=== PATIENT | male | born 1960 | race Caucasian/White ===

== ENCOUNTER 2018-02-02 06:02 | Inpatient (IN) | payer BC, OTHER ==
[2018-02-02] MEDS ORDERED: POLYMYXIN/BACITRACIN 1L IRRIG (06:46)
[2018-02-02] MEDS ORDERED: DESFLURANE 15 MIN (07:00)
[2018-02-02] MEDS ORDERED: LABETALOL HCL 20MG INJ IV (07:30)
[2018-02-02] MEDS ORDERED: DIPHENHYDRAMINE 50 MG INJ IV (07:30)
[2018-02-02] MEDS ORDERED: HYDROmorphONE 1 MG/5 ML IV SYRINGE IV (07:30)
[2018-02-02] MEDS ORDERED: hydrALAzine 20 MG INJ IV (07:30)
[2018-02-02] MEDS ORDERED: MIDAZOLAM 1 MG/ML 2 ML INJ (07:32)
[2018-02-02] MEDS ORDERED: METOCLOPRAMIDE 10 MG INJ (07:33)
[2018-02-02] MEDS ORDERED: ONDANSETRON 4 MG INJ (07:36)
[2018-02-02] MEDS ORDERED: FENTAnyl 50 MCG/ML VIAL (07:36)
[2018-02-02] MEDS ORDERED: HYDROmorphONE 2 MG/ML SYG (07:36)
[2018-02-02] MEDS ORDERED: ROCURONIUM 50 MG INJ ×2 (08:02→11:50)
[2018-02-02] MEDS ORDERED: CEFAZOLIN 1 GM INJ (08:02)
[2018-02-02] MEDS ORDERED: SUCCINYLCHOLINE CHLORIDE 100 MG/5 ML SYG IV (08:02)
[2018-02-02] MEDS: HEMOSTATIC MATRIX SYG ZFS ×2 (08:32→11:26)
[2018-02-02] MEDS: BUPIVACAINE 0.25%/EPI (SDV) 10 ML INJ (11:26)
[2018-02-02] MEDS: POLYMYXIN/BACITRACIN 1L IRRIG (11:26)
[2018-02-02] MEDS: GELATIN SIZE 100 SPONGE (11:26)
[2018-02-02] MEDS: THROMBIN 5000 UNIT VIAL (11:26)
[2018-02-02] MEDS ORDERED: GLYCOPYRROLATE 0.4 MG INJ (11:50)
[2018-02-02] MEDS ORDERED: NEOSTIGMINE 3 MG/3 ML SYRINGE (11:50)
[2018-02-02] MEDS ORDERED: NACL 0.9% 3 ML SYG IV (12:00)
[2018-02-02] MEDS ORDERED: AL HYDROX/MG HYDROX/SIMETH 30 ML CUP PO (12:00)
[2018-02-02] MEDS ORDERED: NALOXONE (0.4 MG/ML) INJ IV (12:00)
[2018-02-02] MEDS ORDERED: HYDROCODONE/APAP (5/325) TAB PO (12:00)
[2018-02-02] MEDS ORDERED: ACETAMINOPHEN 325 MG TAB PO (12:00)
[2018-02-02] MEDS: HYDROmorphONE 1 MG/5 ML IV SYRINGE IV ×4 (12:03→12:52)
[2018-02-02] MEDS: MEPERIDINE 25 MG INJ IV (12:41)
[2018-02-02] MEDS: LISINOPRIL 10 MG TAB PO (13:30)
[2018-02-02] MEDS: ONDANSETRON 4 MG INJ IV (13:34)
[2018-02-02] MEDS: CEFAZOLIN 1 GM/50 ML (PMX) 50 ML IVPB ×2 (13:35→19:57)
[2018-02-02] MEDS: SOD CHLORIDE 0.9% 1,000 ML IV (14:08)
[2018-02-02] MEDS: METOPROLOL (XL) 100 MG TAB PO (14:30)
[2018-02-02] MEDS: HYDROmorphONE 0.5 MG/0.5 ML SYG IV ×2 (15:39→18:31)
[2018-02-02] MEDS: HYDROCODONE/APAP (5/325) TAB PO (21:51)
[2018-02-03] MEDS: CEFAZOLIN 1 GM/50 ML (PMX) 50 ML IVPB ×2 (01:52→08:41)
[2018-02-03] MEDS: HYDROCODONE/APAP (5/325) TAB PO ×2 (01:56→11:31)
[2018-02-03] MEDS: SOD CHLORIDE 0.9% 1,000 ML IV ×2 (02:00→03:41)
[2018-02-03] MEDS: HYDROmorphONE 0.5 MG/0.5 ML SYG IV ×7 (02:44→21:44)
[2018-02-03 05:32] LABS: HEMATOCRIT 36.9 % (42.0-52.0); HEMOGLOBIN 12.7 g/dl (14.0-18.0)
[2018-02-03 06:22] LABS: BLOOD UREA NITROGEN 11 mg/dl (7-20); CALCIUM 8.3 mg/dl (8.4-10.2); CARBON DIOXIDE 25 mmol/L (21-31); CREATININE 0.73 mg/dl (0.61-1.24); Estimated GFR > 60 mL/min (>60); GLUCOSE 99 mg/dl (70-220)
[2018-02-03 07:09] LABS: ANION GAP 7 (5-13); CHLORIDE 102 mmol/L (97-110); POTASSIUM 3.9 mmol/L (3.5-5.1)
[2018-02-03 07:11] LABS: SODIUM 134 mmol/L (135-144)
[2018-02-03] MEDS: DOCUSATE SODIUM 100 MG CAP PO ×2 (08:40→20:52)
[2018-02-03] MEDS: METOPROLOL (XL) 100 MG TAB PO (08:41)
[2018-02-03] MEDS: LISINOPRIL 10 MG TAB PO (08:41)
[2018-02-03] MEDS: ONDANSETRON 4 MG INJ IV (09:46)
[2018-02-03] MEDS: PROCHLORPERAZINE 10 MG TAB PO (12:32)
[2018-02-03] MEDS ORDERED: FAMOTIDINE 20 MG TAB PO (18:30)
[2018-02-03] MEDS: FAMOTIDINE 20 MG TAB PO (18:36)
[2018-02-04] MEDS: HYDROCODONE/APAP (5/325) TAB PO ×5 (01:09→17:03)
[2018-02-04] MEDS: SOD CHLORIDE 0.9% 1,000 ML IV ×2 (02:04→15:02)
[2018-02-04] MEDS: DOCUSATE SODIUM 100 MG CAP PO (08:11)
[2018-02-04] MEDS: METOPROLOL (XL) 100 MG TAB PO (08:11)
[2018-02-04] MEDS: LISINOPRIL 10 MG TAB PO (08:11)
== END 2018-02-04 17:40 | disposition home or self-care (01) | DRG 517 ==
LOC: REC 06:02 → MS1 13:06
PROC: 01NB0ZZ Release Lumbar Nerve, Open Approach (ICD-10-PCS; principal; 2018-02-02 07:29)
DX: M48.062 Spinal stenosis, lumbar region with neurogenic claudication (principal); I10 Essential (primary) hypertension; M41.86 Other forms of scoliosis, lumbar region
CPT/HCPCS: 72100; 80048; 85014; 85018; 86850; 86900; 86901; 97116; 97161; 97530